=== PATIENT | male | born 1985 | race Caucasian/White ===

== ENCOUNTER 2016-09-27 17:49 | Inpatient (IN) | payer MEDICAID, OTHER ==
[~2016-09-27] VITALS: Ht 177.8 cm; Wt 64.0 kg
[2016-09-27] VITALS (7 sets, daily range): BP systolic 109–129; BP diastolic 64–73; PULSE 64–90; RESP 16–26; TEMP 99.8
[2016-09-27] MEDS ORDERED: SOD CHLORIDE 0.9% 1,000 ML IV ONE (19:30)
[2016-09-27 19:36] LABS: ADD SCAN DIFF NO
[2016-09-27 19:39] LABS: ABNORMAL IP MESSAGE 1; HEMATOCRIT 46.9 % (42.0-52.0); HEMOGLOBIN 16.1 g/dl (14.0-18.0); MEAN CORPUSCULAR HEMOGLOBIN 30.8 pg (29.0-33.0); MEAN CORPUSCULAR HGB CONC 34.3 g/dl (32.0-37.0); MEAN CORPUSCULAR VOLUME 89.7 fl (82.0-101.0); MEAN PLATELET VOLUME 10.8 fl (7.4-10.4); PLATELET COUNT 326 10^3/UL (140-415); RED BLOOD COUNT 5.23 10^6/ul (4.70-6.10); RED CELL DISTRIBUTION WIDTH 12.1 % (11.5-14.5)
[2016-09-27 19:54] LABS: ALBUMIN 5.1 g/dl (3.3-4.9); POTASSIUM 4.1 mmol/L (3.5-5.1)
[2016-09-27 19:56] LABS: CREATININE 0.9 mg/dl (0.61-1.24)
[2016-09-27 19:57] LABS: ALBUMIN/GLOBULIN RATIO 1.1; BILIRUBIN,INDIRECT 0.6 mg/dl (0-1.1); BILIRUBIN,TOTAL 0.6 mg/dl (0.2-1.3); CALCIUM 10.2 mg/dl (8.4-10.2); TOTAL PROTEIN 9.7 g/dl (6.1-8.1)
[2016-09-27 20:18] LABS: EOSINOPHILS # 0.3 10^3/ul (0.0-0.5); LYMPHOCYTES # 1.1 10^3/ul (0.8-2.9); MONOCYTE # 1.3 10^3/ul (0.3-0.9); NEUTROPHIL # 23.9 10^3/ul (1.6-7.5)
[2016-09-27 20:31] LABS: ADD UMIC YES; URINE BILIRUBIN (Dip) 1+ (NEGATIVE); URINE BLOOD (Dip) 1+ (NEGATIVE); URINE COLOR YELLOW (YELLOW); URINE GLUCOSE (Dip) NEGATIVE (NEGATIVE); URINE KETONES (Dip) TRACE (NEGATIVE); URINE LEUKOCYTE ESTERASE (Dip) NEGATIVE (NEGATIVE); URINE NITRITE (Dip) NEGATIVE (NEGATIVE); URINE TOTAL PROTEIN (Dip) 1+ (NEGATIVE); URINE UROBILINOGEN (Dip) 2.0 E.U./dL (0.1-1.0)
[2016-09-27 20:38] LABS: ICTOTEST NEGATIVE (NEGATIVE)
--- NOTE | 2016-09-27 21:24 | RADRPT ---
PROCEDURE: CT abdomen and pelvis without contrast. CLINICAL INDICATION: Right lower quadrant pain TECHNIQUE: CT scan of the abdomen and pelvis without contrast was performed on a multislice CT [facility] utilizing axial imaging from the lung bases through the pubis symphysis. The patient was scann ed without intravenous contrast. Sagittal and coronal reformatted images were made. The CTDIvol is 7.48 mGy and the DLP is 393.60 mGycm. One of the following 3 dose reduction techniques were used during this CT examination: automated exp osure control; adjustment of the mA and /or kV according to patient size; or use of iterative recons truciton technique. COMPARISON: None available FINDINGS: The lung bases are clear with exception of bibasilar scarring. The heart size is normal. No perica rdial or pleural effusion is present. The visualized liver is normal in size and attenuation. No focal lesions are identified. The visua lized spleen, pancreas, gallbladder, and bilateral adrenal glands are normal. The bilateral kidneys are normal. No evidence for hydroureter nephrosis or nephroureterolithiasis is present. The visualized bowel is nonobstructive. No evidence for diverticulosis or diverticulitis is present . Right lower quadrant inflammatory reaction is present surrounding the dilated appendix which measure s 12 mm in maximum dimensions. Periappendiceal inflammation is noted without definite evidence for pneumoperitoneum at this time. The inflamed appendix extends into the right brenda pelvis. No evidence for ascites or pneumoperitoneum is present. Periappendiceal inflammation is noted in the right lower quadrant of the abdomen continuing into the right brenda pelvis. The urinary bladder is incompletely distended. A small prostate gland is noted. The imaged osseous structures are normal. IMPRESSION: 1. Acute appendicitis with extensive periappendiceal inflammation. 2. No definite evidence for pneumoperitoneum at this time. 3. Bibasilar scarring A call report was made to Brayden Castro Pa-c at 09/27/2016 9:22:12 PM following the completion o f the examination by the undersigned. RPTAT: HDC .Erica Kay MD, MD Date Time Electronically viewed and signed by .Erica Kay MD, on 09/27/2016 21:23 .C/
[2016-09-27] MEDS ORDERED: metroNIDAZOLE 500 MG/NS (PMX) 100 ML IVPB ONE (21:30)
[2016-09-27] MEDS ORDERED: CEFTRIAXONE 1 GM/50 ML (PMX) 50 ML IVPB ONE (21:30)
[2016-09-27] MEDS ORDERED: SOD CHLORIDE 0.9% 1,000 ML IV SCH (21:36)
[2016-09-27] MEDS ORDERED: morphine 4 MG/ML VIAL IV STA (21:37)
[2016-09-27] MEDS ORDERED: SOD CHLORIDE 0.9% 1,000 ML IV STA (21:37)
--- NOTE | 2016-09-27 21:41 | ERA ---
ER Documentation Chief Complaint Date/Time DATE: 09/27/16 TIME: 21:38 Chief Complaint LOWER BILAT ABD PAIN/VOMITING X3 HPI This is a 31-year-old male who presents to the emergency room for evaluation of abdominal pain for the past 3 days. The patient states that he has had abdominal pain which started near the midportion of his abdomen and his slowly moved towards the right lower portion of his abdomen. He denies any fever associated with this and denies any diarrhea but does state that he is feeling nauseous and has vomited multiple times. The patient states movement makes his pain worse and he came to the ER for evaluation today. ROS All systems reviewed and are negative except as per history of present illness. Allergies Allergies: Coded Allergies: No Known Allergy (Unverified , 09/27/16) PMhx/Soc Medical and Surgical Hx: pt denies Medical Hx, pt denies Surgical Hx History of Surgery: Yes (r leg fx as child, dog bite as a child) Anesthesia Reaction: No Hx Neurological Disorder: No Hx Respiratory Disorders: No Hx Cardiac Disorders: No Hx Psychiatric Problems: No Hx Miscellaneous Medical Probl: No Hx Alcohol Use: Yes (once/ month) Hx Substance Use: No Hx Tobacco Use: No Smoking Status: Never smoker Physical Exam Vitals Vital Signs Date Time Temp Pulse Resp B/P Pulse Ox O2 Delivery O2 Flow Rate FiO2 09/27/16 17:54 98.6 116 25 138/61 97 Physical Exam INITIAL VITAL SIGNS: Reviewed by me GENERAL: The patient is well developed and appropriate for usual state of health in no apparent distress HEENT: Pupils equal, round, and reactive to light. EOMI. There is no scleral icterus. NECK: C-spine is soft and supple, there is no meningismus. There is no cervical lymphadenopathy. LUNGS: Clear to auscultation bilaterally. There are no rales, wheezes or rhonchi. HEART: Regular rate and rhythm, no murmurs, clicks, rubs or gallops. ABDOMEN: Positive McBurney point tenderness, positive guarding in the right lower quadrant, positive rebound tenderness, positive Rovsing sign. There are bowel sounds in all four quadrants. EXTREMITIES: There is no peripheral cyanosis or edema. No focal swelling or erythema. NEUROLOGICAL: The patient moves all four extremities with 5/5 strength. Cranial nerves II - XII are intact. Normal gait. Alert and oriented SKIN: There is no apparent rash or petechiae. HEME/LYMPHATIC: There is no evidence of excessive bruising or lymphedema. PSYCHIATRIC: The patient does not appear anxious or depressed. Result Diagram: 09/27/16191909/27/161919 Results 24 hrs Laboratory Tests Test 09/27/16 19:20 09/27/16 20:22 White Blood Count 26.510^3/ul Red Blood Count 5.2310^6/ul Hemoglobin 16.1g/dl Hematocrit 46.9% Mean Corpuscular Volume 89.7fl Mean Corpuscular Hemoglobin 30.8pg Mean Corpuscular Hemoglobin Concent 34.3g/dl Red Cell Distribution Width 12.1% Platelet Count 19204^3/UL Mean Platelet Volume 10.8fl Neutrophils % 90.0% Lymphocytes % 4.0% Monocytes % 5.0% Eosinophils % 1.0% Neutrophils # 23.910^3/ul Lymphocytes # 1.110^3/ul Monocytes # 1.310^3/ul Eosinophils # 0.310^3/ul Sodium Level 142mmol/L Potassium Level 4.1mmol/L Chloride Level 96mmol/L Carbon Dioxide Level 28mmol/L Anion Gap 22 Blood Urea Nitrogen 10mg/dl Creatinine 0.90mg/dl Glucose Level 115mg/dl Calcium Level 10.2mg/dl Total Bilirubin 0.6mg/dl Direct Bilirubin 0.00mg/dl Indirect Bilirubin 0.6mg/dl Aspartate Amino Transf (AST/SGOT) 21IU/L Alanine Aminotransferase (ALT/SGPT) 30IU/L Alkaline Phosphatase 85IU/L Total Protein 9.7g/dl Albumin 5.1g/dl Globulin 4.60g/dl Albumin/Globulin Ratio 1.10 Lipase 45U/L Urine Color YELLOW Urine Clarity CLEAR Urine pH 6.5 Urine Specific [place] 1.020 Urine Ketones TRACE Urine Nitrite NEGATIVE Urine Bilirubin 1+ Urine Ictotest NEGATIVE Urine Urobilinogen 2.0 E.U./dL Urine Leukocyte Esterase NEGATIVE Urine Microscopic RBC 2-5/HPF Urine Microscopic WBC 0-2/HPF Urine Hemoglobin 1+ Urine Glucose NEGATIVE% Urine Total Protein 1+ Current Medications Medications (Trade) Dose Ordered Sig/[place] Route PRN Reason Start Time Stop Time Status Last Admin Dose Admin Sodium Chloride 1,000 ml @ 1,000 mls/hr Q1H ONCE IV 09/27/16 19:30 09/27/16 20:29 DC 09/27/16 19:20 Ceftriaxone Sodium 50 ml @ 100 mls/hr ONCE ONCE IVPB 09/27/16 21:30 09/27/16 21:59 Metronidazole (Flagyl 500 Mg (Pmx)) 100 ml @ 100 mls/hr ONCE ONCE IVPB 09/27/16 21:30 09/27/16 22:29 Procedures/MDM CT abdomen pelvis without: 1. Acute appendicitis with extensive periappendiceal inflammation. 2. No definite evidence for pneumoperitoneum at this time. 3. Bibasilar scarring EKG: Rate/Rhythm: [Normal Sinus Rhythm] QRS, ST, T-waves: [No changes consistent w/ acute ischemia] Impression: [No evidence of ischemia or arrhythmia] Chest X-ray 1V Interpreted by me: Soft Tissue: No acute abnormalities Bones: No acute abnormalities Mediastinum/Cardiac Silhouette/Lungs: [No acute abnormalities] This 31-year-old male presents to the emergency room for evaluation of abdominal pain. When I evaluated this patient he was significantly tender in the right lower quadrant with positive rebound and guarding. Lab work was obtained which did demonstrate a white count 26,000. The patient underwent a CT of the abdomen pelvis which reveals acute appendicitis. The patient was started on Rocephin, Flagyl, he was kept n.p.o. His pain is controlled with morphine. He was given 2 L of fluid and I have contacted our general surgeon cooperative extension agent Dr. Lora who agrees to evaluate this patient. The patient will be placed in for admission at this time to her panel physician, Dr. sandhu. He hemodynamically stable at this time and is stable for [facility]. Critical Care: Excluding all billable procedures Time: 33 minutes Treatments/Evaluations: Close monitoring and treatment of unstable vital signs, cardiorespiratory, and neurologic status, while maintaining tight balance of fluid, respiratory, and cardiac interventions, multiple consultations , laboratory interpretation, multiple bedside reevaluation. Departure Diagnosis: Primary Impression: Acute appendicitis Additional Impression: Nausea & vomiting Condition: FIFI Lopes DO September 27, 2016 21:41
[2016-09-27 21:55] LABS: INR 1.13; PROTIME 14.5 Sec (12.2-14.2); PT RATIO 1.1
[2016-09-27 21:56] LABS: PARTIAL THROMBOPLASTIN TIME 28.5 Sec (25.0-35.0)
[2016-09-27] MEDS ORDERED: ACETAMINOPHEN 325 MG TAB PO PRN ×2 (22:00→22:30)
[2016-09-27] MEDS ORDERED: ONDANSETRON 4 MG INJ IV PRN ×3 (22:00→23:00)
--- NOTE | 2016-09-27 22:00 | RADRPT ---
PROCEDURE: XR Chest. CLINICAL INDICATION: Chest pain. TECHNIQUE: Single frontal view. COMPARISON: None. FINDINGS: The lungs are clear. The heart size is normal. There is no pleural effusion or pneumothorax. There is an old healed fracture of the midshaft of the right clavicle. IMPRESSION: 1. Old healed fracture of the midshaft of the right clavicle. 2. Otherwise unremarkable chest radiograph. RPTAT: QQ .Doron Arita MD, MD Date Time Electronically viewed and signed by .Doron Arita MD, on 09/27/2016 21:59 .R/
[2016-09-27] MEDS ORDERED: LIDOCAINE 1% (MPF) 30 ML INJ ONE (22:18)
[2016-09-27] MEDS ORDERED: BUPIVACAINE 0.25%/EPI (SDV) 30 ML INJ ONE (22:18)
[2016-09-27] MEDS: D5-NS + KCL 20 MEQ 1,000 ML IV SCH (22:26)
[2016-09-27] MEDS ORDERED: morphine 2 MG INJ IV PRN (22:30)
[2016-09-27] MEDS ORDERED: HYDROCODONE/APAP (5/325) TAB PO PRN (22:30)
[2016-09-27] MEDS ORDERED: IBUPROFEN 600 MG TAB PO PRN (22:30)
[2016-09-27] MEDS ORDERED: ROCURONIUM 50 MG INJ ONE (22:58)
[2016-09-27] MEDS ORDERED: LIDOCAINE 2% (SDV) 5 ML INJ ONE (22:58)
[2016-09-27] MEDS ORDERED: FENTAnyl 50 MCG/ML VIAL ONE (22:58)
[2016-09-27] MEDS ORDERED: MIDAZOLAM 1 MG/ML 2 ML INJ ONE (22:58)
[2016-09-27] MEDS ORDERED: SUCCINYLCHOLINE CHLORIDE 100 MG/5 ML SYG IV ONE (22:58)
[2016-09-27] MEDS ORDERED: PROPOFOL 20 ML ONE ×2 (22:58→23:12)
[2016-09-27] MEDS ORDERED: HYDROmorphONE (0.2 MG/ML) 10ML SYG IV PRN ×3 (23:00)
[2016-09-27] MEDS ORDERED: MEPERIDINE 25 MG INJ IV PRN (23:00)
[2016-09-27] MEDS ORDERED: DIPHENHYDRAMINE 50 MG INJ IV PRN (23:00)
[2016-09-27] MEDS ORDERED: FENTAnyl 50 MCG/ML VIAL IV PRN ×3 (23:00)
[2016-09-27] MEDS ORDERED: PROCHLORPERAZINE 10 MG INJ IV PRN (23:00)
[2016-09-27] MEDS ORDERED: PHENYLephrine (100 MCG/ML) 5ML SYG ONE (23:08)
[2016-09-27] MEDS ORDERED: DEXAMETHASONE 4 MG/ML 1 ML INJ ONE (23:11)
[2016-09-27] MEDS ORDERED: ONDANSETRON 4 MG INJ ONE (23:11)
[2016-09-27] MEDS ORDERED: FAMOTIDINE 20 MG INJ ONE (23:11)
[2016-09-27] MEDS ORDERED: GLYCOPYRROLATE 0.4 MG INJ ONE (23:19)
[2016-09-27] MEDS ORDERED: NEOSTIGMINE 3 MG/3 ML SYRINGE ONE ×2 (23:19→23:31)
[2016-09-27] MEDS ORDERED: KETOROLAC 30 MG INJ ONE (23:25)
[2016-09-27] MEDS: KETOROLAC 15 MG INJ IV SCH (23:30)
[2016-09-28] VITALS (12 sets, daily range): BP systolic 108–133; BP diastolic 69–80; PULSE 64–88; RESP 17–21; Ht 177.8 cm; Wt 64.0 kg
[2016-09-28] MEDS: PIPER-TAZO 3.375 GM IV (PMX) 100 ML IVPB SCH ×4 (00:07→18:04)
--- NOTE | 2016-09-28 00:45 | CONS ---
DATE OF ADMISSION: 09/27/2016 DATE OF CONSULTATION: 09/27/2016 HISTORY OF PRESENT ILLNESS: Mr. Pulido is a 31-year-old male who developed acute onset of generali zed abdominal pain 2 days ago. His symptoms persisted and localized to the right lower quadrant. H jamie had nausea and vomiting as well as fevers and chills. Due to his persistent symptoms, he presente d to the ER. His workup was consistent with acute appendicitis. I was called for consultation. PAST MEDICAL HISTORY: Noncontributory. PAST SURGICAL HISTORY: None. MEDICATIONS: None. ALLERGIES: NO KNOWN DRUG ALLERGIES. SOCIAL HISTORY: He drinks occasionally. PHYSICAL EXAMINATION: GENERAL: He is a well-developed, well-nourished male in no apparent distress. VITAL SIGNS: He is afebrile. Temperature is 98.6, pulse 116, BP 138/61. CHEST: Clear to auscultation bilaterally. HEART: Regular rhythm. ABDOMEN: Soft, nondistended with significant right lower quadrant tenderness. IMAGING: His CT reveals acute appendicitis. LABORATORY DATA: White count of 26, hematocrit of 47, platelets 326. Sodium 142, potassium 4.1, ch loride 96, CO2 28, BUN and creatinine of 10 and 0.9 and glucose 115. ASSESSMENT AND PLAN: Mr. Pulido is a 31-year-old male with acute appendicitis. I discussed laparo scopic, possible open appendectomy with the patient. All benefits, risks, alternatives discussed in detail, questions answered, and the patient elected to proceed. Dictated By: ANGELLA RYAN/JACY Conf#: [id number] DID#: [id number]
[2016-09-28] MEDS: D5-NS + KCL 20 MEQ 1,000 ML IV SCH ×3 (03:56→13:13)
[2016-09-28] MEDS: KETOROLAC 15 MG INJ IV SCH ×3 (04:30→16:30)
--- NOTE | 2016-09-28 06:19 | HP ---
DATE OF ADMISSION: 09/28/2016 TIME SEEN: 3 a.m. CHIEF COMPLAINT: Abdominal pain. HISTORY OF PRESENT ILLNESS: The patient is a 31-year-old male with no significant past medical hist ory who presented to the emergency department with a chief complaint of abdominal pain and planning to have acute appendicitis. His white count was almost 27,[address] abdomen and pelvis shows acute appendicitis with extensive periappendiceal inflammation. The patient already underwent appendecto my by Dr. Lora, and he is now recovering on the floor in stable condition. His only complaint at this time is intermittent abdominal pain mainly at the surgical site and minimal nausea. Otherwise, the vitals are stable. REVIEW OF SYSTEMS: A 12-point review is performed, negative except as mentioned in the HPI. PAST MEDICAL HISTORY: Denies. PAST SURGICAL HISTORY: Denies. SOCIAL HISTORY: Denied a history of tobacco, alcohol, or illicit drug use. ALLERGIES: NO KNOWN DRUG ALLERGIES. MEDICATIONS: None. PHYSICAL EXAMINATION: VITAL SIGNS: Stable. GENERAL: The patient lying in bed in no acute distress. Initially he was sleepy, but arousable to verbal stimuli and ____. HEENT: No obvious head deformity. Pupils are reactive to light. Extraocular muscles intact. CARDIOVASCULAR: Regular rate and rhythm. No extra sounds. LUNGS: Clear. ABDOMEN: Soft, nondistended. There is pain to palpation around the surgical site. EXTREMITIES: No edema. NEUROLOGIC: No focal deficits. LABORATORY: Initially he had a white count of 26.5. IMAGING: CT abdomen and pelvis: Acute appendicitis with extensive periappendiceal inflammation. IMPRESSION: A 31-year-old male who came into the ER in with abdominal pain and found to have acute appendicitis with extensive periappendiceal inflammation and is now status post appendectomy. PLAN: Continue pain management and antiemetics as needed. Advance diet as tolerated. Will check t he a.m. labs. Continue current antibiotic which is Zosyn. Once the patient can tolerate his diet a nd able to ambulate with acceptable pain levels, he will be discharged home to follow up in a week o r 2 at the surgical clinic for post-appendectomy check. Further workup and management per clinical course. Dictated By: REJI FLANAGAN/JACY Conf#: [id number] DID#: [id number]
[2016-09-28] MEDS ORDERED: ENOXAPARIN 40 MG/0.4 ML SYG SC SCH (07:00)
--- NOTE | 2016-09-28 07:42 | OPR ---
DATE OF OPERATION: 09/27/2016 PRE OP DX:Acute appendicitis POST OP DX:Acute appendicitis PROCEDURE: Laparoscopic appendectomy. ANESTHESIA: General. ANESTHESIOLOGIST: Dr. De La O ESTIMATED BLOOD LOSS: Minimal. COMPLICATIONS: None. SPECIMENS: Appendix. INDICATIONS: Mr. Pulido is a 31-year-old male with a 3-day history of generalized abdominal pain localizing to his right lower quadrant. He presented to the ER. I was called for a consultation for laparoscopic, possible open appendectomy for the patient. All benfits, risks, alternatives were discussed in detail. All questions were answered, and dulce kingcolleen elected to proceed. PROCEDURE: The patient was brought to the operating room and placed supine on the table. After pre-operative antibiotics and SCDs were applied, the patient was intubated. All incisions were infiltrated with 0.25% Marcaine. A 5 mm incision was made in the umbilicus. Using a 5 mm laparoscope containing trocar , the abdomen was entered under direct vision and insufflated to 15 mmHg of CO2. The following trocars were then placed under direct vision: A right lower quadrant 5 mm and a left lower quadrant 12 mm. Emanating from the cecum was an acute appendicitis. It was necrotic, but not ruptured or perforated. I was able to then identify the end of the appendix at the base of the cecum, and made a rent in the mesentery at the base of the appendix. I divided the cecum at the base of the appendix with a 35 mm Endo linear cutter white load. I then elevated the appendix and divided the mesentery with a 35 mm Endo linear cutter white load. The appendix was placed in the EndoCatch bag and removed from the 12 mm trocar site. I irrigated out the right lower quadrant and pelvis until effluent was clear. I visualized my staple lines, they were hemostatic. At this point, I desufflated the abdomen and removed all trocars. The fascia of the 12 mm trocar site was closed with 0 Vicryl. Skin incisions were all closed with 4-0 Monocryl, Mastisol, and Steri-Strips. The patient tolerated procedure well, was extubated in the OR, and transferred to recovery room in stable condition. Dictated By: ANGELLA RYAN/JACY Conf#: [id number] [facility]#: [id number] [facility]
[2016-09-28] MEDS ORDERED: DOCU-144 PO (11:44)
[2016-09-28] MEDS ORDERED: CEPH500C PO (11:44)
[2016-09-28 12:14] LABS: ADD SCAN DIFF NO
[2016-09-28 12:43] LABS: ABNORMAL IP MESSAGE 1; BASOPHILS % 0.1 % (0.0-2.0); HEMATOCRIT 35.9 % (42.0-52.0); HEMOGLOBIN 12.2 g/dl (14.0-18.0); LYMPHOCYTES # 1.1 10^3/ul (0.8-2.9); LYMPHOCYTES % 5.1 % (15.0-51.0); MEAN CORPUSCULAR HEMOGLOBIN 31.1 pg (29.0-33.0); MEAN CORPUSCULAR VOLUME 91.6 fl (82.0-101.0); MEAN PLATELET VOLUME 10.6 fl (7.4-10.4); MONOCYTE # 1.8 10^3/ul (0.3-0.9); NEUTROPHILS % 86.1 % (39.0-77.0); PLATELET COUNT 272 10^3/UL (140-415); RED BLOOD COUNT 3.92 10^6/ul (4.70-6.10); RED CELL DISTRIBUTION WIDTH 12.3 % (11.5-14.5); WHITE BLOOD COUNT 22.1 10^3/ul (4.8-10.8)
[2016-09-28 13:02] LABS: CALCIUM 8.8 mg/dl (8.4-10.2); CREATININE 0.76 mg/dl (0.61-1.24)
--- NOTE | 2016-09-28 14:17 | PDOCDIS ---
Discharge Instructions DIAGNOSIS Discharge Diagnosis: 1. acute appendicitis CONDITION Patient Condition: Stable FOLLOW UP/APPOINTMENTS Appointments 1. Follow up with Dr. Star Lora in one week ABELINO ORNELAS September 28, 2016 14:17
--- NOTE | 2016-09-28 14:21 | DS ---
Date/Time of Note Date/Time of Note DATE: 09/28/16 TIME: 14:19 Discharge Summary Admission/Discharge Info Admit Date/Time September 28, 2016 at 01:50 Discharge Date/Time Final Diagnosis 1. Acute Appendicitis Patient Condition: Stable Consults 1. Dr. Star Lora Hospital Course This is a 31-year-old male with a past medical history came to [facility] due to reports of abdominal pain. Patient did have CT scan of his abdomen that did show acute appendicitis as well as a white count of 27,000. He was seen by surgeon and placed on antibiotics. He did receive laparoscopic appendectomy and did respond well to treatment. He was advanced to regular diet. He was cleared by surgeon for discharge home. He was provided with appropriate analgesics. During hospital stay he did improve. The plan of care was discussed with the patient and patient did verbalize understanding. On the day of discharge patient was in stable condition Discussed plan of care with Dr. Wayne Discharge process 40 minutes Home Meds Active Scripts Cephalexin* (Cephalexin*) 500 Mg Capsule, 500 MG PO Q8, #15 CAP Prov:ABELINO ORNELAS 09/28/16 Docusate Sodium* (Colace*) 100 Mg Capsule, 200 MG PO BID Y for CONSTIPATION, # 60 CAP Prov:ABELINO ORNELAS 09/28/16 Follow-up Plan CONDITION Patient Condition: Stable FOLLOW UP/APPOINTMENTS Appointments 1. Follow up with Dr. Star Lora in one week Primary Care Provider Care Physician No Primary Pending Labs Laboratory Tests Test 09/27/16 19:00 09/27/16 19:20 09/27/16 20:22 09/28/16 12:13 Prothrombin Time 14.5Sec (12.2-14.2) Prothrombin Time Ratio 1.1 INR International Normalized Ratio 1.13 Activated Partial Thromboplast Time 28.5Sec (25.0-35.0) White Blood Count 26.510^3/ul (4.8-10.8) 22.110^3/ul (4.8-10.8) Red Blood Count 5.2310^6/ul (4.70-6.10) 3.9210^6/ul (4.70-6.10) Hemoglobin 16.1g/dl (14.0-18.0) 12.2g/dl (14.0-18.0) Hematocrit 46.9% (42.0-52.0) 35.9% (42.0-52.0) Mean Corpuscular Volume 89.7fl (82.0-101.0) 91.6fl (82.0-101.0) Mean Corpuscular Hemoglobin 30.8pg (29.0-33.0) 31.1pg (29.0-33.0) Mean Corpuscular Hemoglobin Concent 34.3g/dl (32.0-37.0) 34.0g/dl (32.0-37.0) Red Cell Distribution Width 12.1% (11.5-14.5) 12.3% (11.5-14.5) Platelet Count 70051^3/UL (140-415) 07273^3/UL (140-415) Mean Platelet Volume 10.8fl (7.4-10.4) 10.6fl (7.4-10.4) Neutrophils % 90.0% (39.0-77.0) 86.1% (39.0-77.0) Lymphocytes % 4.0% (15.0-51.0) 5.1% (15.0-51.0) Monocytes % 5.0% (0.0-11.0) 8.0% (0.0-11.0) Eosinophils % 1.0% (0.0-7.0) 0.0% (0.0-7.0) Neutrophils # 23.910^3/ul (1.6-7.5) 19.010^3/ul (1.6-7.5) Lymphocytes # 1.110^3/ul (0.8-2.9) 1.110^3/ul (0.8-2.9) Monocytes # 1.310^3/ul (0.3-0.9) 1.810^3/ul (0.3-0.9) Eosinophils # 0.310^3/ul (0.0-0.5) 0.010^3/ul (0.0-0.5) Sodium Level 142mmol/L (135-144) 139mmol/L (135-144) Potassium Level 4.1mmol/L (3.5-5.1) 4.0mmol/L (3.5-5.1) Chloride Level 96mmol/L (97-110) 107mmol/L (97-110) Carbon Dioxide Level 28mmol/L (21-31) 27mmol/L (21-31) Anion Gap 22 (8-16) 9 (8-16) Blood Urea Nitrogen 10mg/dl (7-20) 7mg/dl (7-20) Creatinine 0.90mg/dl (0.61-1.24) 0.76mg/dl (0.61-1.24) Glucose Level 115mg/dl (70-220) 95mg/dl (70-220) Calcium Level 10.2mg/dl (8.4-10.2) 8.8mg/dl (8.4-10.2) Total Bilirubin 0.6mg/dl (0.2-1.3) Direct Bilirubin 0.00mg/dl (0.00-0.20) Indirect Bilirubin 0.6mg/dl (0-1.1) Aspartate Amino Transf (AST/SGOT) 21IU/L (15-46) Alanine Aminotransferase (ALT/SGPT) 30IU/L (13-69) Alkaline Phosphatase 85IU/L (42-121) Total Protein 9.7g/dl (6.1-8.1) Albumin 5.1g/dl (3.3-4.9) Globulin 4.60g/dl (1.3-3.2) Albumin/Globulin Ratio 1.10 Lipase 45U/L (23-300) Urine Color YELLOW (YELLOW) Urine Clarity CLEAR (CLEAR) Urine pH 6.5 (5.0-9.0) Urine Specific [place] 1.020 (1.003-1.030) Urine Ketones TRACE (NEGATIVE) Urine Nitrite NEGATIVE (NEGATIVE) Urine Bilirubin 1+ (NEGATIVE) Urine Ictotest NEGATIVE (NEGATIVE) Urine Urobilinogen 2.0 E.U./dL (0.1-1.0) Urine Leukocyte Esterase NEGATIVE (NEGATIVE) Urine Microscopic RBC 2-5/HPF (0) Urine Microscopic WBC 0-2/HPF (0) Urine Hemoglobin 1+ (NEGATIVE) Urine Glucose NEGATIVE% (NEGATIVE) Urine Total Protein 1+ (NEGATIVE) Basophils % 0.1% (0.0-2.0) Nucleated Red Blood Cells % 0.0/100WBC (0.0-0.0) Basophils # 0.010^3/ul (0.0-0.1) Nucleated Red Blood Cells # 0.010^3/ul (0.0-0.0) ABELINO ORNELAS September 28, 2016 14:21
[2016-09-28 15:26] LABS: WHITE BLOOD COUNT 26.5 10^3/ul (4.8-10.8)
[2016-09-28] MEDS ORDERED: HYDR-3498 PO (15:49)
== END 2016-09-28 19:05 | disposition home or self-care (01) | DRG 343 ==
LOC: FTE 17:49 → SDS 23:01 → MS1 09-28 01:50
PROVIDERS: ADMIT Internal Medicine; ATTEND Surgery
PROC: 0DTJ0ZZ Resection of Appendix, Open Approach (ICD-10-PCS; principal; 2016-09-27 23:00)
DX: K35.80 Unspecified acute appendicitis (principal)
CPT/HCPCS: 36415; 71010; 74176; 80048; 80053; 81001; 83690; 85025; 85610; 85730; 88304; 93005; 96361; 96374; 96375; J0696; J1100; J1650; J1885; J2250; J2270; J2370; J2405; J2543; J2710; J3010; J3480; J7030; J7999